=== PATIENT | female | born 1980 | race Caucasian/White ===

== ENCOUNTER 2016-12-12 00:50 | Emergency (ER) | payer SELFPAY ==
[~2016-12-12] VITALS: Ht 167.6 cm; Wt 50.0 kg
[2016-12-12 03:20] VITALS: BP 140/88
== END 2016-12-12 03:25 | disposition left against medical advice (07) ==
LOC: ER 00:50
DX: R51 Headache (principal); Z53.21 Procedure and treatment not carried out due to patient leaving prior to being seen by health care provider